=== PATIENT | female | born 1995 | race Caucasian/White ===

== ENCOUNTER 2022-03-28 09:55 | Emergency (ER) | payer OTHER, SELFPAY ==
--- NOTE | ~2022-03-28 | XR_ITS ---
EXAMINATION: XR toe 5th RT min 2V DATE: 03/28/2022 10:23 INDICATION: Right fifth toe injury and pain. TECHNIQUE: 3 views of right fifth toe were obtained. COMPARISON: None. FINDINGS: There is an avulsion fracture of dorsal base of fifth middle phalanx. There is ankylosis of fifth middle and distal phalanges. Joint spaces are normal. IMPRESSION: 1. Avulsion fracture of dorsal base of fifth middle phalanx. Reviewed, dictated and finalized at location A.
[2022-03-28 10:00] VITALS: BP 118/68; PULSE 78; RESP 20; TEMP 36.9; O2SAT 100
--- NOTE | 2022-03-28 10:29 | ED.LOWEXIN ---
HPI - Extremity Injury (Lower) General Chief Complaint: Extremity Injury, Lower Stated Complaint: Toe Injury/Right Time Seen by Provider: 03/28/22 10:30 Source: patient Mode of arrival: ambulatory Limitations: no limitations History of Present Illness HPI Narrative: 26 old female presented for complaint of right little toe pain after injury last night. She states she stubbed her toe, unsure on what, and has had mild pain, swelling, and bruising today. Rates pain 2 out of 10. Ambulatory without difficulty. She has not taken anything for pain. Related Data Home Medications Medication Instructions Recorded Confirmed bupropion HCl 150 mg 24 hr tablet, 150 mg PO QAM 03/28/22 03/28/22 extended release fluoxetine 10 mg capsule (Prozac) 10 mg PO DAILY 03/28/22 03/28/22 Allergies Allergy/AdvReac Type Severity Reaction Status Date / Time No Known Allergies Allergy Verified 03/28/22 10:10 Review of Systems Review of Systems: CONSTITUTIONAL: Denies body aches, fever, chills CARDIOVASCULAR: Denies chest pain, palpitations, or edema. RESPIRATORY: Denies cough or dyspnea. SKIN: Denies rash, itching, or wounds. MUSCULOSKELETAL: Right little toe pain NEUROLOGIC: Denies headache, numbness, tingling, or weakness. All systems reviewed & are unremarkable except as noted in HPI and below PMFSH Comments At time of signature, I have reviewed and agree with nursing past medical, surgical, social and family history unless otherwise noted. Please see nursing chart for further information. There is no relevant family history pertinent to the presenting complaint Exam Narrative: GENERAL: Well-appearing CHEST: Speaks in full sentences. No respiratory distress. HEART: Regular rate and rhythm. Normal and equal peripheral pulses. EXTREMITIES: Right fifth toe with moderate bruising, minimal swelling, tender to palpation at the base. Gait steady. Right foot has normal strength and sensation, normal range of motion No open wounds or obvious deformity; pulse palpable and equal bilaterally, skin warm, dry, pink. Capillary refill less than 3 seconds. SKIN: Warm, dry, no rash. NEURO: Alert and oriented x3. Course Course Emergency Course: Patient is aware of diagnosis, understands and agrees to treatment plan. Anticipatory guidance given. Patient agrees to follow-up as directed and is aware of reasons to seek care at the emergency department. Portions of this record may have been created with voice recognition software Level of Care: Express Care Visit Vital Signs Vital signs: Vital Signs Temperature 98.5 F 03/28/22 10:00 Pulse Rate 78 03/28/22 10:00 Respiratory Rate 20 03/28/22 10:00 Blood Pressure 118/68 03/28/22 10:00 Pulse Oximetry 100 03/28/22 10:00 Oxygen Delivery Room Air 03/28/22 10:00 Temperature 98.5 F 03/28/22 10:00 Pulse Rate 78 03/28/22 10:00 Respiratory Rate 20 03/28/22 10:00 Blood Pressure 118/68 03/28/22 10:00 Pulse Oximetry 100 03/28/22 10:00 Oxygen Delivery Room Air 03/28/22 10:00 Reviewed Procedures Orthopedic Splinting/Casting right 5th toe: Lower Extremity Immobilizer: post-op shoe and terri tape Pre-Procedure Neuro Vascular Exam: normal Post-Procedure Neuro Vascular Exam: normal MDM - Extremity Injury (Lower) MDM Narrative Medical decision making narrative: Result of x-ray reviewed with patient. Terri tape and postop shoe applied. Advised supportive measures and signs/symptoms to go to the ER. Pt is appropriate for outpt treatment and f/u with pcp/ortho. Differential Diagnosis Differential diagnosis: Likely fracture of toe and other (dislocation, contusion) Imaging Data Radiologist's impression: Patient: Marleny Patricio : 1995 MR#: [id number] Age/Sex: 26 / F Acct:[id number] Loc: [facility]? ? ADM Date: 03/28/22Attending Dr: Ordering Physician: Judie Garcia APRN Date of Service: 03/28/22 Procedure(s): XR toe 5
== END 2022-03-28 10:41 | disposition home or self-care (01) ==
PROVIDERS: Emergency Provider Nurse Practitioner Family; PCP Nurse Practitioner Family
DX: S92.521A Displaced fracture of middle phalanx of right lesser toe(s), initial encounter for closed fracture (principal); W22.8XXA Striking against or struck by other objects, initial encounter; F41.9 Anxiety disorder, unspecified; F32.A Depression, unspecified
CPT/HCPCS: 73660; 99214; G0463